=== PATIENT | male | born 1985 | race Caucasian/White ===

== ENCOUNTER 2020-10-08 18:18 | Emergency (ER) | payer OTHER, MEDICAID, SELFPAY ==
[2020-10-08 18:27] VITALS: BP 142/66; PULSE 82; RESP 16; TEMP 36.7; O2SAT 100
--- NOTE | 2020-10-08 18:32 | DI.RAD.S_ITS ---
PROCEDURE: XR ELBOW RT MIN 3V INDICATIONS: fall, pain/swelling TECHNIQUE: 3 views of the elbow were acquired. COMPARISON: None. FINDINGS: Bones: No fractures or dislocations. No suspicious bony lesions. Soft tissues: No elbow joint effusion. No suspicious soft tissue calcifications. IMPRESSION: No fracture. If the patient's symptoms do not improve recommend followup radiographs in 10 days to assess for healing sclerosis/occult injury. Dictated by: Herb Light M.D. on 10/08/2020 at 18:59 Approved by: Herb Light M.D. on 10/08/2020 at 18:59
--- NOTE | 2020-10-08 20:34 | ED.GENADULT ---
HPI - General Adult General Chief complaint: Extremity Injury, Upper Stated complaint: Fall, Right Arm Injury Time Seen by Provider: 10/08/20 20:14 Source: patient Mode of arrival: Ambulatory History of Present Illness HPI narrative: Patient is a 35-year-old male here for evaluation of injuries that he sustained when he fell while skateboarding. This was done several days ago. He states since that time he has had swelling around his right elbow. Has significant road rash to his right elbow. Is also having swelling to his lower extremities which potentially is improved somewhat. He was concerned about the discomfort he was having in his right elbow and also the swelling. Related Data Previous Rx's Medication Instructions Recorded cephalexin 500 mg capsule 500 mg PO QID 7 Days #28 cap 10/08/20 Allergies Allergy/AdvReac Type Severity Reaction Status Date / Time No Known Drug Allergies Allergy Verified 10/08/20 21:03 Review of Systems Constitutional Constitutional: Denies fever(s) Cardiovascular Cardiovascular: Reports system reviewed and no additional complaints, except as documented Respiratory Respiratory: Reports system reviewed and no additional complaints, except as documented Gastrointestinal Gastrointestinal: Reports system reviewed and no additional complaints, except as documented Musculoskeletal Comments: Right elbow pain and swelling Integumentary/Breasts Comments: Road rash to right elbow Neurologic Neurologic: Reports system reviewed and no additional complaints, except as documented Hematologic/Lymphatic On Anticoagulants: No Patient History Medical History Healthy adult Exam Initial Vital Signs Initial Vital Signs: Vital Signs Temperature 98.1 F 10/08/20 18:27 Pulse Rate 82 10/08/20 18:27 Respiratory Rate 16 10/08/20 18:27 Blood Pressure 142/66 H 10/08/20 18:27 Pulse Oximetry 100 10/08/20 18:27 Const General: cooperative and healthy appearing [facility] Head: normal to inspection and normocephalic Resp Effort & Inspection: normal respiratory effort Cardio Rate: regular rate Skin Other: Patient with a large area of road rash on the ulnar aspect/volar aspect of his right elbow. There is some surrounding redness. Is also some surrounding swelling Neuro General: patient alert and patient awake Extrem Other: Patient with swelling around the right elbow. His lower extremities have minor swelling. Psych Appearance: grossly normal and well kempt Course Orders Ordered: Discontinued Medications Cephalexin HCl (Cephalexin 250 Mg Capsule) 500 mg PO NOW ONE Stop: 10/08/20 20:36 Last Admin: 10/08/20 20:46 Dose: 500 mg Documented by: SHUKRI Vital Signs Vital signs: Vital Signs - 8 hr 10/08/20 18:27 Temperature 98.1 F Pulse Rate 82 Respiratory Rate 16 Blood Pressure 142/66 H Pulse Oximetry 100 Medical Decision Making Imaging Data Extremity x-ray #1: Radiologist's Impression: [address] [id number] ReportSigned Patient: Wes Cabrera DMR#: [id number]: [id number]:[id number]/Sex: 35 / MDate of Service: 10/08/20Loc: EDAccession Number: [id number] Procedure: XR elbow RT min 3V Ordering Provider: Lewis Zafar D.O. PROCEDURE: XR ELBOW RT MIN 3V INDICATIONS: fall, pain/swelling TECHNIQUE: 3 views of the elbow were acquired. COMPARISON: None. FINDINGS: Bones: No fractures or dislocations. No suspicious bony lesions. Soft tissues: No elbow joint effusion. No suspicious soft tissue calcifications. IMPRESSION: No fracture. If the patient's symptoms do not improve recommend followup radiographs in 10 days to assess for healing sclerosis/occult injury. Dictated by: Herb Light M.D. on 10/08/2020 at 18:59 Approved by: Herb Light M.D. on 10/08/2020 at 18:59 [facility] Narrative Medical decision making narrative: His fall was several days ago. He does have quite a bit of road rash that does appear to be healing well but does have some surrounding erythema in quite a bit of swelling. There were no fractures on the x-rays. Given his trauma in the redness and the way he is feeling we will cover with antibiotics for a cellulitis. There is no indication for any splinting. She was given return precautions and follow-up instructions. He expressed understanding and agreement. Discharge Plan Departure Patient Disposition: Home Clinical Impression: Abrasion of skin Instructions: DI for Abrasion Activity Restrictions/Additional Instructions: recommend that you take the antibiotics as directed. You can shower like normal and also put a topical antibiotic ointment over the area. Return to the emergency department for any new or worsening symptoms Prescriptions: New cephalexin 500 mg capsule 500 mg PO QID 7 Days Qty: 28 RF: 0
[2020-10-08] MEDS: cephALEXin 250 MG CAPSULE 500 MG PO (20:46)
[2020-10-08 20:51] VITALS: BP 140/60; PULSE 83; RESP 16; O2SAT 99
== END 2020-10-08 20:51 | disposition home or self-care (01) ==
PROVIDERS: Emergency Provider Emergency Medicine
DX: S50.311A Abrasion of right elbow, initial encounter (principal); M79.89 Other specified soft tissue disorders; W19.XXXA Unspecified fall, initial encounter; Y93.51 Activity, roller skating (inline) and skateboarding
CPT/HCPCS: 73080; 99283